=== PATIENT | male | born 1945 | race Caucasian/White ===

== ENCOUNTER 2016-10-25 09:21 | Outpatient (CLI) | payer MEDICARE ==
[2016-10-25 12:50] LABS: ALT (SGPT) 9 U/L (0-55); AST (SGOT) 15 U/L (5-34); Alkaline Phosphatase 95 U/L (40-150); Anion Gap 18 mmol/L (10-20); BUN (Urea Nitrogen) 16 mg/dL (8.4-25.7); Bilirubin, Direct 0.1 mg/dL (0.1-0.3); Bilirubin, Total 0.3 mg/dL (0.2-1.2); Calc. Creatinine Clearance 0 mL/min (70-130); Calcium 8.5 mg/dL (7.8-10.44); Carbon Dioxide 22 mmol/L (23-31); Chloride 108 mmol/L (98-107); Estimated GFR-MDRD 55; LDL Cholesterol, Calculated 57 mg/dL; Protein, Total 6.6 g/dL (5.8-8.1)
[2016-10-25 13:17] LABS: Hemoglobin A1c 4.9 % (4.0-6.0)
[2016-10-25 13:41] LABS: Hematocrit 35.5 % (42.0-52.0); Mean Platelet Volume 6.5 fL (7.4-10.4); Red Blood Cell (RBC) Count 3.78 mill/uL (4.70-6.10)
[2016-10-25 13:56] LABS: Band 4 % (5-11); Neutrophil 32 % (42-75)
== END 2016-10-25 09:22 | disposition home or self-care (01) ==
LOC: NAVSJIPCSP 09:21
PROVIDERS: ATTEND Family Medicine
DX: R60.9 Edema, unspecified (principal); I10 Essential (primary) hypertension; I50.9 Heart failure, unspecified; M19.90 Unspecified osteoarthritis, unspecified site; Z72.0 Tobacco use; Z79.899 Other long term (current) drug therapy
CPT/HCPCS: 36415; 80048; 80061; 80076; 83036; 84443; 85025

== ENCOUNTER 2017-03-01 09:34 | Outpatient (CLI) | payer MEDICARE ==
[2017-03-01 12:47] LABS: ALT (SGPT) 9 U/L (8-55); AST (SGOT) 20 U/L (5-34); Albumin 2.8 g/dL (3.4-4.8); Alkaline Phosphatase 108 U/L (40-150); Anion Gap 15 mmol/L (10-20); BUN (Urea Nitrogen) 20 mg/dL (8.4-25.7); Bilirubin, Direct 0.1 mg/dL (0.1-0.3); Bilirubin, Total 0.2 mg/dL (0.2-1.2); Calc. Creatinine Clearance 0 mL/min (70-130); Calcium 8.1 mg/dL (7.8-10.44); Carbon Dioxide 21 mmol/L (23-31); Cardiac Risk 4.8 (Less than 4.5); Chloride 111 mmol/L (98-107); Cholesterol 96 mg/dl (< 200 Desired); Estimated GFR-MDRD 48; Glucose 96 mg/dL (83-110); HDL Cholesterol 20 mg/dL (>60 Neg Risk); LDL Cholesterol, Calculated 45 mg/dL; Protein, Total 6.3 g/dL (5.8-8.1); Sodium 142 mmol/L (136-145); Triglycerides 155 mg/dL (Less than 150)
[2017-03-01 14:01] LABS: Anisocytosis SLIGHT = 6-15 cells (100X) (0-5/hpf); Band 1 % (5-11); Eosinophils 5 % (0-10); Hemoglobin 9.8 g/dL (14.0-18.0); Hypochromia SLIGHT = 6-15 cells (100X) (0-5/hpf); Lymphocytes 52 % (21-51); MDiff Complete? YES; Mean Corpuscular HGB CONC 29.3 g/dL (32.0-36.0); Mean Corpuscular Hemoglobin 27.1 pg (27.0-31.0); Mean Corpuscular Volume 92.5 fl (80.0-94.0); Mean Platelet Volume 7.4 fL (7.4-10.4); Monocytes 12 % (0-10); Neutrophil 28 % (42-75); PLT Morphology Comment Appears Adequate; Platelet Count 129 thou/uL (130-400); RBC Distribution Width 15.1 % (11.5-14.5); Red Blood Cell (RBC) Count 3.62 mill/uL (4.70-6.10); White Blood Cell (WBC) Count 1.9 thou/uL (4.8-10.8)
== END 2017-03-01 09:35 | disposition home or self-care (01) ==
LOC: NAVSJIPCSP 09:34
PROVIDERS: ATTEND Family Medicine
DX: R60.9 Edema, unspecified (principal); I11.0 Hypertensive heart disease with heart failure; I50.9 Heart failure, unspecified; M19.90 Unspecified osteoarthritis, unspecified site; Z79.899 Other long term (current) drug therapy
CPT/HCPCS: 36415; 80048; 80061; 80076; 83036; 84443; 85025; 85060